=== PATIENT | female | born 1995 | race African-American/Black ===

== ENCOUNTER 2016-11-12 14:29 | Emergency (ER) | payer SELFPAY ==
[2016-11-12 14:49] VITALS: BP 136/84; PULSE 66; RESP 20; TEMP 98.4; O2SAT 100
[2016-11-12] MEDS ORDERED: CEPHALEXIN 500 MG CAP PO ONE (15:05)
--- NOTE | 2016-11-12 15:05 | EDPHY ---
H & P Stated Complaint: ? bug bite r breast Time Seen by Provider: 11/12/16 14:56 - Personal History LMP (Females 10-55): 1-7 Days Ago Current Tetanus/Diphtheria Vaccine: Unsure - Medical/Surgical History Hx Asthma: No Hx Chronic Respiratory Disease: No Hx Diabetes: No Hx Cardiac Disease: No Hx Renal Disease: No Hx Cirrhosis: No Hx Alcoholism: No Hx HIV/AIDS: No Hx Splenectomy or Spleen Trauma: No Other PMH: denies - Social History Smoking Status: Never smoked Constitutional: Initial Vital Signs Temperature (C) 36.9 C 11/12/16 14:46 Heart Rate 66 11/12/16 14:46 Respiratory Rate 20 11/12/16 14:46 Blood Pressure 136/84 H 11/12/16 14:46 O2 Sat (%) 100 11/12/16 14:46 O2 Delivery Mode Room Air Allergies/Adverse Reactions: No Known Allergies Allergy (Unverified 11/12/16 14:46) Home Medications: Medication Instructions Recorded Cephalexin [Keflex (RX)] 500 mg PO TID #20 cap 11/12/16 Medical Decision Making ED Course/Re-evaluation: CHIEF COMPLAINT: Bug bite on chest HISTORY OF PRESENT ILLNESS: This patient is a 21 year old female presenting with a possible bug bite on her upper right breast, persistent over the past few days. She has noted increased redness and small red lines extending from the site. She endorses itchiness. She denies fever, chills, shortness of breath, vomiting, or other associated symptoms. REVIEW OF SYSTEMS: A 10 point review of systems was performed and is negative with the exception of the elements mentioned in the history of present illness. PHYSICAL EXAM: General Appearance: Alert, well hydrated, appropriate, and non-toxic appearing. Head: Atraumatic without scalp tenderness or obvious injury Eyes: Pupils equal, round, reactive to light and accommodation, EOMI, no trauma , no injection. Ears: Clear bilaterally, no perforation, normal landmarks Nose: Atraumatic, no rhinorrhea, clear. Throat: There is no erythema or exudates, no lesions, normal tonsils, mucus membranes moist. Neck: Supple, non-tender, no lymphadenopathy. Respiratory: No retractions, no distress, no wheezes, and no accessory muscle use. Lungs are clear to auscultation bilaterally. Cardiovascular: Regular rate and rhythm. Good capillary refill all extremities. Gastrointestinal: Abdomen is soft, non-tender, non-distended, no masses, no rebound, no guarding, no peritoneal signs. Musculoskeletal: Normal active ROM of all extremities, atraumatic. Neurological: Alert, appropriate, and interactive. Nonfocal neuro exam. Skin: Quarter-sized indurated, erythematous area to upper right breast with associated soft tissue swelling and lymphangitis. Good turgor, no nodules on palpation. PAST MEDICAL HISTORY: Denies PAST SURGICAL HISTORY: Noncontributory SOCIAL HISTORY: Lives in [place]. DIFFERENTIAL DIAGNOSIS: Includes but not limited to cellulitis, lymphangitis, insect bite, contact dermatitis. MEDICAL DECISION MAKIN21 year old female presents with a quarter-sized indurated, erythematous area to upper right breast with associated soft tissue swelling and lymphangitis secondary to an insect bite a few days ago. Plan to treat with Keflex to resolve cellulitis and lymphangitis. No signs of systemic infection. Plan to discharge home in good condition with prescription for Keflex. Follow up and return precautions discussed. The patient is comfortable with this plan. - Data Points Medications Given: Discontinued Medications Cephalexin HCl (Keflex) 500 mg PO EDNOW ONE PRN Reason: Protocol Stop: 11/12/16 15:06 Last Admin: 11/12/16 15:20 Dose: 500 mg Departure - Departure Disposition: Home, Routine, Self-Care Clinical Impression: Lymphangitis Cellulitis Qualifiers: Site of cellulitis: trunk Site of cellulitis of trunk: chest wall Qualified Code(s): L03.313 - Cellulitis of chest wall Condition: Good Instructions: Cellulitis (ED), Lymphangitis (ED) Additional Instructions: 1. Take your Keflex as prescribed. It is important to finish your entire course even if you are feeling better or your bite looks resolved. 2. Follow up with a primary care provider for symptoms unresolved. 3. Return to the emergency department if you develop increased redness, more streaking, swollen lymph nodes, fever, or other worsening of condition. Referrals: NONE *PRIMARY CARE P,. [Primary Care Provider] - As per Instructions Willy Bowers MD [Medical Doctor] - As per Instructions Prescriptions: Cephalexin [Keflex (RX)] 500 mg PO TID #20 cap Report Scribed for: Alen Day Report Scribed by: Lian Kwong Date of Report: 11/12/16 Time of Report: 15:08
== END 2016-11-12 15:34 | disposition home or self-care (01) ==
DX: L03.313 Cellulitis of chest wall (principal)